=== PATIENT | female | born 1960 | race Caucasian/White ===

== ENCOUNTER 2024-02-03 10:05 | Outpatient (CLI) | payer MEDICARE | END 2024-02-03 10:06 | disposition home or self-care (01) | LOC: CSHMAMMO 10:05 | PROVIDERS: ATTEND Family Medicine | DX: Z12.31 Encounter for screening mammogram for malignant neoplasm of breast (principal); E89.40 Asymptomatic postprocedural ovarian failure | CPT/HCPCS: 77063; 77067; 77080 ==